=== PATIENT | male | born 1955 | race Caucasian/White ===

== ENCOUNTER 2017-09-25 06:55 | Day surgery (SDC) | END 2017-09-25 15:30 | disposition home or self-care (01) ==

== ENCOUNTER 2018-06-10 10:54 | Day surgery (SDC) | payer BC ==
[~2018-06-10] VITALS: Ht 157.5 cm; Wt 78.6 kg
[2018-06-10] VITALS (7 sets, daily range): BP systolic 132–168; BP diastolic 57–75; PULSE 62–72; RESP 16–19; Ht 157.5 cm; Wt 78.6 kg
[~2018-06-10 10:54] MED LIST: AMLO-147 PO; HYDR25TA6 PO; INSU100I33 SC; LISI40TA3 PO; SIMV20TA PO; SS SC
[2018-06-10] MEDS ORDERED: FENTAnyl 50 MCG/ML VIAL ONE (12:42)
[2018-06-10] MEDS ORDERED: MIDAZOLAM 1 MG/ML 2 ML INJ ONE (12:42)
[2018-06-10] MEDS ORDERED: IODIXANOL LOCM 100 ML BTL ONE (12:42)
[2018-06-10] MEDS ORDERED: HEPARIN 1000 UNITS/ML 10 ML INJ ONE (12:42)
[2018-06-10] MEDS ORDERED: LIDOCAINE 1% (MDV) 20 ML INJ ONE (12:42)
--- NOTE | 2018-06-10 15:35 | SIPON ---
Date/Time of Note Date/Time of Note DATE: 06/10/18 TIME: 15:34 Operative Report Preoperative Diagnosis R foot ulcer Postoperative Diagnosis same Operation/Procedure Performed aortogram. RLE angiogram, BILLING SPEC right peroneal artery occlusion Surgeon see signature line assistant professor none Anesthesia: moderate sedation Estimated blood loss: minimal Transfusion Required none Specimen none Grafts/Implants none Complications none ALFIE MENARD MD Jun 10, 2018 15:35
--- NOTE | 2018-06-10 18:30 | OPR ---
DATE OF OPERATION: 06/10/2018 PREOPERATIVE DIAGNOSIS: Right first toe nonhealing ulcer. POSTOPERATIVE DIAGNOSIS: Right first toe nonhealing ulcer. PROCEDURE PERFORMED: Right lower extremity angiogram with percutaneous angioplasty of right peroneal artery. SURGEON: Alfie Jha MD ANESTHESIA: Local with sedation. ESTIMATED BLOOD LOSS: Minimal. COMPLICATIONS: No intraprocedural complications. INDICATIONS: This is a 63-year-old diabetic hypertensive transgender woman with bilateral first toe ulcers. She has had an angiogram done about 6 months ago of the right lower extremity and showed just peroneal only runoff with really no distal target. 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 This is a single vessel peroneal runoff into the foot. DESCRIPTION OF PROCEDURE: The patient was brought to the cath lab nurse, placed on the table in the supine position. Left groin was prepped and draped in the usual sterile fashion. I began by infiltrating over the left common femoral artery using about 10 mL of 1% Xylocaine. Using micropuncture needle to enter the artery under ultrasound guidance, an 0.018 wire was inserted through the needle into the artery. The micropuncture sheath was advanced over the wire into the artery. I then advanced an 0.035 Bentson wire into the abdominal aorta, exchanged the micropuncture sheath for a 5-British sheath over wire, advanced the rim catheter into the infrarenal aorta and did an aortogram and then advanced the catheter up and over the bifurcation and down into the right SFA and did runoff down the right lower extremity. FINDINGS OF ANGIOGRAPHY: Infrarenal aorta is widely patent. Both common external and internal iliac arteries are widely patent. Right common, superficial and profunda femoral arteries are widely patent. Right popliteal artery is widely patent. Below the knee, the anterior tibial and posterior tibial artery is completely occluded. There is a short segment of the right anterior tibial was patent but then occludes shortly after. There is no reconstitution distally. The peroneal artery is the only runoff going down the leg and there is a severe subtotal occlusion in the mid portion. There is just multiple collaterals going into the foot. So I gave the patient 5000 units of heparin intravenously. I used an Advantage wire which I advanced down into the popliteal and I changed the micropuncture sheath out for a 6-British 70 cm Destination which I left in the right popliteal artery. I then used the Advantage wire and a Quick-Cross catheter to engage the peroneal artery origin. I advanced the catheter into the origin. I then advanced a Command wire through that catheter and down into the distal peroneal. I then tried to angioplasty the peroneal. I used a 2 mm x 15 cm balloon. I was able to get the balloon down into the area of stenosis, but I could not get it across, so I inflated it several times up to 12 atmospheres and it just could not cross that area of subtotal occlusion. I was able to get some flow into the peroneal. It is somewhat improved, but I could not get it across that area of severe stenosis, so there was still residual peroneal stenosis. We made several attempts, and there were all unsuccessful. I then removed all the catheter sheaths and wires and then used a 6-British Angio-Seal device to close the left groin puncture site. Sterile dressing was applied. The patient was then transferred to the recovery room in stable condition. She tolerated the procedure well without any complications. Dictated By: ALFIE BECK/OSKAR Conf#: [id number] DID#: [id number] CC: KIRSTY LOVE DPM;*EndCC* MTDD
== END 2018-06-10 17:18 | disposition home or self-care (01) ==
LOC: SDS 10:54
PROVIDERS: ATTEND Surgery Vascular Surgery
DX: L97.519 Non-pressure chronic ulcer of other part of right foot with unspecified severity (principal); I10 Essential (primary) hypertension
CPT/HCPCS: 36902; 75630; 80048; 81001; 82962; 85025; 85610; 85730; C1725; C1887; C1894; J1644; J2250; J3010; Q9967; Z7610